=== PATIENT | male | born 1985 | race Caucasian/White ===

== ENCOUNTER 2017-03-16 20:57 | Emergency (ER) | payer SELFPAY ==
[~2017-03-16 20:57] MED LIST: ABILIFY20 M1 PO; ABILIFY20 MG PO; ALBUTEROL17 GM INH; AMOXICILLIN875 M1 PO; BIAXIN500 MG PO; CODEINE COUGH SYRUP PO; DAY TIME COLD-237 M1 PO; DORYX100 MG PO; ELIMITE60 GM TP; ETODOLAC PO; FLEXERIL10 MG PO; IBUPROFEN200 M1 PO; IBUPROFEN800 M1 PO; LEXAPRO20 M1 PO; LEXAPRO20 M2 PO; MIRAPEX0.5 M1 PO; MIRAPEX0.5 MG PO; MOTRIN800 MG PO; NEURONTIN300 M1 PO; NORCO 5/325 TAB1 TAB PO; PREDNISONE10 MG PO; PREDNISONE20 M1 PO; PREDNISONE20 MG PO; PROVENTIL HFA6.7 GM IH; PROVENTIL17 GM IH; PULMICORT180 PUFF/I INH; SEROQUEL200 M1 PO; SUDAFED; TIME COL PO; TRIAMCINOLONE A15 GM TP; TYLENOL325 M2 PO; VENTOLIN HFA18 G2 PO; VICODIN 5/500 T1 TAB PO; VIRTUSSIN AC L118 ML PO; VYVANSE20 M1 PO; VYVANSE20 MG PO; ZOFRAN ODT4 MG/UDTAB PO; ZYRTEC10 M1 PO; [UNRECOGNIZED DRUG - REMARK]
[2017-03-16] MEDS ORDERED: ABILIFY5 M1 PO (21:40)
[2017-03-16] MEDS ORDERED: VYVANSE70 M1 PO (21:41)
[2017-03-16] MEDS ORDERED: LEXAPRO5 M1 PO (21:41)
[2017-03-16 22:24] LABS: BASO % 0.3 % (0-2); EOS % 1.9 % (0-7); EOSINOPHIL ABSOLUTE COUNT 0.2 tho/cmm (0.0-0.7); HCT-HEMATOCRIT 36.4 % (36.0-53.5); HGB-HEMOGLOBIN 12.1 gm/dl (13.5-17.0); IMMATURE GRANULOCYTES ABSOLUTE 0.05 tho/cmm (0-0.03); IMMATURE GRANULOCYTES PERCENT 0.5 % (0-0.3); LYMPH % 17.1 % (20-45); LYMPH ABSOLUTE COUNT 1.9 tho/cmm (0.8-4.5); MCH (MEAN CORPUSCULAR HGB) 28.9 pg (28.0-32.0); MCHC MEAN CORPUSCULAR HGB CONC 33.2 % (32.0-36.0); MCV (MEAN CELL VOLUME) 86.9 fl (82.0-96.0); MEAN PLATELET VOLUME 10.6 cmc (9.4-12.4); MONO % 9.1 % (0-12); NEUTROPHIL ABSOLUTE COUNT 7.7 tho/cmm (1.6-8.0); NEUTROPHIL-AUTOMATED 7.7 tho/cmm (1.6-8.0); NEUTROPHILS % 71.1 % (40-80); PLATELET COUNT 248 tho/cmm (150-450); RED BLOOD COUNT 4.19 mil/cmm (4.40-5.70); RED CELL DISTRIBUTION WIDTH 14.1 % (12.4-16.4); WHITE BLOOD COUNT 10.8 tho/cmm (4.0-10.0)
[2017-03-16 22:35] LABS: ANION GAP 13 mmol/L (0-20); BLOOD UREA NITROGEN 11 mg/dl (6-24); CALCIUM 8.5 mg/dl (8.5-10.5); CARBON DIOXIDE-VENOUS 27 mmol/L (22-32); CHLORIDE 104 mmol/l (96-110); CREATININE 0.77 mg/dl (0.60-1.30); GLUCOSE 93 mg/dL (70-110); SODIUM 141 mmol/L (135-145); eGFR VALUE FOR BLACK >90 mL/Min
[2017-03-16] MEDS ORDERED: VENTOLIN HFA18 G2 PO (23:27)
[2017-03-16] MEDS ORDERED: PREDNISONE20 M1 PO (23:27)
== END 2017-03-16 23:41 ==
LOC: EDMED 20:57
PROVIDERS: Emergency Medicine
DX: J45.901 Unspecified asthma with (acute) exacerbation (principal); J06.9 Acute upper respiratory infection, unspecified; E87.6 Hypokalemia; F90.9 Attention-deficit hyperactivity disorder, unspecified type; F17.200 Nicotine dependence, unspecified, uncomplicated; E66.01 Morbid (severe) obesity due to excess calories; Z79.51 Long term (current) use of inhaled steroids; Z79.899 Other long term (current) drug therapy
CPT/HCPCS: J7512